=== PATIENT | male | born 1955 | race Caucasian/White ===

== ENCOUNTER 2017-02-01 22:16 | Emergency (ER) ==
[2017-02-01 22:30] VITALS: BP 141/86
--- NOTE | 2017-02-01 22:53 | PROVIDER DOCUMENTATION ---
HPI-Rash/Wound/ReCheck - General Chief Complaint: Extremity Injury Stated Complaint: FINGER INJURY FROM WELDING Time Seen by Provider: 02/01/17 22:33 Source: patient Allergies/Adverse Reactions: Allergies Allergy/AdvReac Type Severity Reaction Status Date / Time morphine Allergy Severe SWELLING Verified 05/30/16 12:55 Home Medications: Home Medication List Medication Instructions Recorded Confirmed Last Taken Type Clindamycin [Cleocin] 300 mg PO Q6HR #40 capsule 02/01/17 Unknown Rx Sulfamethoxazole/Trimethoprim 2 each PO BID #40 tablet 02/01/17 Unknown Rx [Bactrim Ds Tablet] - History of Present Illness-Dermatology Nature of Presenting Problem: 61 year old male presents to the ER with complaint of left second digit pain x 3days. Pt states he was welding when the wire poked him in the second digit. Pt states last pm he noticed swelling and warmth in hand. Pain is getting worse. Review of Systems - Adult - REVIEW OF SYSTEMS - ADULT Constitutional: reports: chills. denies: fever Eyes: reports: no symptoms reported Ears, Nose, Mouth & Throat: reports: no symptoms reported Cardiovascular: reports: no symptoms reported Respiratory: reports: no symptoms reported Gastrointestinal: reports: no symptoms reported Genitourinary: reports: no symptoms reported Musculoskeletal: reports: bone pain, joint pain, joint swelling Integumentary: reports: no symptoms reported Neurological: reports: no symptoms reported Psychiatric: reports: no symptoms reported Endocrine: reports: no symptoms reported Hematologic/Lymphatic: reports: no symptoms reported Allergic/Immunologic: reports: no symptoms reported All Other Systems: Reviewed and Negative Past History - Adult - PAST MEDICAL HISTORY-ADULT Review of Records: reports: Nursing Assessment Review, Medications Reviewed Major Childhood Illnesses: reports: denies history Cardiovascular: reports: hyperlipidemia Respiratory: reports: COPD Gastrointestinal: reports: denies history Obstetrical/Gynecological: reports: denies history Genitourinary: reports: denies history Musculoskeletal: reports: denies history Neurological: reports: denies history Psychiatric: reports: depression Endocrine/Immune: reports: denies history Other Conditions: reports: denies history - PRIOR SURGERIES/PROCEDURES Surgical/Procedure History: reports: back/neck - IMMUNIZATION STATUS Childhood Immunizations: See Nurse Assessment Flu Vaccine: See Nurse Assessment - FAMILY HISTORY Family History: reviewed, not pertinent Physical Exam-General - CONSTITUTIONAL General Appearance: alert, no apparent distress - EYES Eyes: PERRL/EOMI, pink conjunctivae - HEAD, EARS, NOSE, MOUTH & THROAT HENMT: normocephalic/atraumatic, moist mucous membranes - NECK Neck: supple, normal inspection - RESPIRATORY Respiratory: normal breath sounds, no respiratory distress - CARDIOVASCULAR Cardiovascular: normal peripheral pulses, regular rate, rhythm - MUSCULOSKELETAL Back Exam: no CVA tenderness, no vertebral tenderness Extremity: swelling, tenderness - SKIN Integumentary: normal color, warm/dry - NEUROLOGIC Neurologic: grossly normal, no motor/sensory deficits - PSYCHIATRIC Psych/Mental Status: normal mood/affect, normal thought content, normal thought process, oriented x 3 Departure - Departure Time of Disposition Order: 22:53 DIAGNOSIS: Cellulitis Qualifiers: Site of cellulitis: extremity Site of cellulitis of extremity: finger Laterality: left Qualified Code(s): L03.012 - Cellulitis of left finger Disposition: HOME 01 Certified Medical Emergency: Emergent Condition: Stable Additional Instructions: ED Follow Up Instructions: You have been treated by a care provider in the Emergency Department. These instructions are being provided to you so you can have an understanding of how to care for yourself upon discharge. Upon discharge from the Emergency Department, you are responsible for making arrangements for follow-up care by a physician of your choice. Take all prescribed medications as directed. Return to the Emergency Department immediately for any new or worsening symptoms. You may call the Physician Referral phone number at [phone] to obtain a list of Physicians who are taking new patients. Prescriptions: Sulfamethoxazole/Trimethoprim [Bactrim Ds Tablet] 2 each PO BID #40 tablet Clindamycin [Cleocin] 300 mg PO Q6HR #40 capsule Referrals: Coral Loera MD [STAFF PHYSICIAN] - None,PCP [Primary Care Provider] - Forms: Return to School/Parent Work Instructions: Clindamycin capsules, Cellulitis, [id number], Sulfamethoxazole ; Trimethoprim, [id number] tablets Attestation - Scribe Verification/Attestation Scribe:: Denisse Hu Acting as Scribe for:: Naseem Sanderson Scribe documention review:: This chart was documented by a scribe and accurately reflects the service the provider performed and the decisions made by the provider.
--- NOTE | 2017-02-02 14:15 | Diag Imaging Result Document ---
PROCEDURE NAME: FINGER(S)-LEFT - 02/01/2017 PLAIN RADIOGRAPH OF THE LEFT 2ND FINGER, 3 VIEWS: COMPARISON: Left hand radiograph dated 07/18/2012. FINDINGS: There are mild degenerative changes at the distal IP joint. There is no evidence of fracture, dislocation, or intrinsic osseous lesion, otherwise. There is soft tissue edema around the index finger. IMPRESSION: Soft tissue edema around the index finger but no evidence of acute osseous abnormality.
== END 2017-02-01 23:03 | disposition home or self-care (01) ==
LOC: P.ED 22:16
DX: L03.012 Cellulitis of left finger (principal); S69.92XA Unspecified injury of left wrist, hand and finger(s), initial encounter; M79.645 Pain in left finger(s); R22.32 Localized swelling, mass and lump, left upper limb; W26.8XXA Contact with other sharp object(s), not elsewhere classified, initial encounter; M25.442 Effusion, left hand; E78.5 Hyperlipidemia, unspecified; J44.9 Chronic obstructive pulmonary disease, unspecified; F32.9 Major depressive disorder, single episode, unspecified
CPT/HCPCS: 73140; 99283